=== PATIENT | male | born 1950 | race Caucasian/White ===

== ENCOUNTER 2017-07-30 09:17 | Inpatient (IN) | payer MEDICARE ==
[~2017-07-30] VITALS: Ht 188 cm; Wt 112.6 kg
[2017-07-30] MEDS ORDERED: PLEASE ENTER ALLERGIES MC SCH (10:00)
[2017-07-30] MEDS ORDERED: SODIUM CHLORIDE FLUSH 10ML SYR IVF ONE (10:00)
[2017-07-30 10:19] LABS: BASOPHILS # (AUTO) 0.04 x10^3/uL (0-0.1); BASOPHILS % (AUTO) 0 % (0-1); EOSINOPHILS # (AUTO) 0.19 x10^3/uL (0-0.4); EOSINOPHILS % (AUTO) 2 % (1-7); LYMPHOCYTES # (AUTO) 1.12 x10^3/uL (1-3.4); LYMPHOCYTES % (AUTO) 11 % (22-44); MD NO; MEAN CORPUSCULAR HGB CONC 33.1 g/dL (33.2-36.2); MEAN CORPUSCULAR VOLUME 90.7 fL (81-97); MEAN PLATELET VOLUME 9.4 fL (7.4-10.4); MONOCYTES # (AUTO) 0.64 x10^3/uL (0.2-0.8); MONOCYTES % (AUTO) 6 % (2-9); NEUTROPHILS # (AUTO) 8.34 x10^3/uL (1.8-6.8); NEUTROPHILS % (AUTO) 81 % (42-75); PLATELET COUNT 187 x10^3/uL (130-400); RED BLOOD COUNT 4.16 x10^6/uL (4.38-5.82); RED CELL DISTRIBUTION WIDTH 16.5 % (9.4-14.8)
[2017-07-30 10:25] LABS: CHLORIDE 103 mmol/L (98-107); INTERNATIONAL NORMALIZED RATIO 1.02 (0.93-1.1); PROTHROMBIN TIME 10.5 Seconds (9.6-11.5)
[2017-07-30 10:37] LABS: ALANINE AMINOTRANSFERASE 48 U/L (12-78); ALBUMIN 2.7 g/dL (3.4-5.0); ANION GAP 7 mmol/L (5-15); CALCIUM 9.4 mg/dL (8.5-10.1); CREATININE 1.74 mg/dL (0.7-1.3)
[2017-07-30 10:42] LABS: ALKALINE PHOSPHATASE 55 U/L (45-117); BILIRUBIN,TOTAL 1.4 mg/dL (0.2-1.0); TOTAL PROTEIN 6.6 g/dL (6.4-8.2); TROPONIN I < 0.015 ng/mL (0.000-0.045)
[2017-07-30] MEDS ORDERED: SODIUM CHLORIDE 0.9% 1,000 ML IV ONE (11:15)
[2017-07-30 11:55] LABS: T4 (THYROXINE) 8.8 mcg/dL (4.5-12.1)
[2017-07-30] MEDS ORDERED: GLIP10TA13 PO ×2 (12:19)
[2017-07-30] MEDS ORDERED: LIOT25TA3 PO (12:19)
[2017-07-30] MEDS ORDERED: ATOR20TA PO (12:19)
[2017-07-30] MEDS ORDERED: ASPI325T17 PO (12:19)
[2017-07-30] MEDS ORDERED: MECL-76 PO (12:19)
[2017-07-30] MEDS ORDERED: VALS80TA3 PO (12:19)
[2017-07-30] MEDS ORDERED: FURO20TA3 PO (12:19)
[2017-07-30] MEDS ORDERED: FLUT100B NAS (12:19)
[2017-07-30] MEDS ORDERED: SODIUM CHLORIDE 0.9% 1,000 ML IV SCH (12:19)
[2017-07-30] MEDS ORDERED: LEVO200T5 PO (12:19)
[2017-07-30] MEDS ORDERED: SITA100T PO (12:19)
[2017-07-30] MEDS ORDERED: ACETAMINOPHEN 325 MG TABLET PO PRN (12:30)
[2017-07-30] MEDS ORDERED: PHARMACY MAY ADJ FOR RENAL FX MC PRN (12:30)
[2017-07-30] MEDS ORDERED: hydrALAzine 20 MG/ML, 1ML IVPush PRN (12:30)
[2017-07-30] MEDS ORDERED: ONDANSETRON 2MG/ML, 2ML IVPush PRN (12:30)
[2017-07-30] MEDS: MECLIZINE CHEWABLE 25 MG TAB PO SCH ×3 (13:20→21:15)
[2017-07-30] MEDS: HEPARIN 5,000 UNITS/ML, 1ML SQ SCH ×2 (13:20→21:15)
[2017-07-30 13:22] VITALS: BP 170/68
[2017-07-30 13:25] LABS: HEMOGLOBIN A1C 9.7 % (4.2-6.3); TROPONIN I < 0.015 ng/mL (0.000-0.045)
[2017-07-30 14:53] LABS: MICROSCOPIC AUTO
[2017-07-30 14:54] LABS: CULTURE INDICATED? NO
[2017-07-30] MEDS ORDERED: DEXTROSE 50%, 50ML SYRINGE IVPush PRN (18:00)
[2017-07-30] MEDS: INSULIN LISPRO 100 UNITS/ML, PEN SQ-INSULIN SCH ×2 (18:00→21:14)
[2017-07-30] MEDS ORDERED: GLUCAGON 1 MG IM PRN (18:00)
[2017-07-30] MEDS ORDERED: DEXTROSE 4 GM TAB.CHEW PO PRN (18:00)
[2017-07-30 18:10] LABS: TROPONIN I < 0.015 ng/mL (0.000-0.045)
[2017-07-30 21:11] VITALS: BP 153/81
[2017-07-30] MEDS: ATORVASTATIN 20 MG TABLET PO SCH (21:15)
[2017-07-30] MEDS: SODIUM CHLORIDE FLUSH 10ML SYR IVF SCH (21:16)
[2017-07-31] VITALS (19 sets, daily range): BP systolic 81–159; BP diastolic 40–87
[2017-07-31] MEDS: HEPARIN 5,000 UNITS/ML, 1ML SQ SCH ×3 (05:46→20:42)
[2017-07-31 06:07] LABS: CALCIUM 9.3 mg/dL (8.5-10.1); CHLORIDE 105 mmol/L (98-107)
[2017-07-31 06:09] LABS: BASOPHILS # (AUTO) 0.06 x10^3/uL (0-0.1); BASOPHILS % (AUTO) 1 % (0-1); EOSINOPHILS # (AUTO) 0.23 x10^3/uL (0-0.4); EOSINOPHILS % (AUTO) 2 % (1-7); LYMPHOCYTES # (AUTO) 1.34 x10^3/uL (1-3.4); LYMPHOCYTES % (AUTO) 14 % (22-44); MD NO; MEAN CORPUSCULAR HEMOGLOBIN 30.3 pg (27.5-34.5); MEAN CORPUSCULAR HGB CONC 33.2 g/dL (33.2-36.2); MEAN CORPUSCULAR VOLUME 91.2 fL (81-97); MEAN PLATELET VOLUME 9.8 fL (7.4-10.4); MONOCYTES # (AUTO) 0.76 x10^3/uL (0.2-0.8); MONOCYTES % (AUTO) 8 % (2-9); NEUTROPHILS # (AUTO) 7.29 x10^3/uL (1.8-6.8); NEUTROPHILS % (AUTO) 75 % (42-75); PLATELET COUNT 166 x10^3/uL (130-400); RED BLOOD COUNT 3.72 x10^6/uL (4.38-5.82); RED CELL DISTRIBUTION WIDTH 16.3 % (9.4-14.8)
[2017-07-31 06:12] LABS: ANION GAP 7 mmol/L (5-15); CHOL/HDL RATIO 3.8; CHOLESTEROL, TOTAL 134 mg/dL (140-239); CREATININE 1.87 mg/dL (0.7-1.3); HDL CHOL % 26 % (26-37); HDL CHOLESTEROL (DIRECT) 35 mg/dL (40-60); LDL CHOLESTEROL,CALCULATED 60 mg/dL (54-169); LDL/HDL RATIO 1.7 (0.5-3.0); TRIGLYCERIDES 196 mg/dL (50-200); VLDL CHOLESTEROL 39 mg/dL (0-25)
[2017-07-31] MEDS: MECLIZINE CHEWABLE 25 MG TAB PO SCH ×3 (08:19→20:43)
[2017-07-31] MEDS: LEVOTHYROXINE 200 MCG TABLET PO SCH (08:19)
[2017-07-31] MEDS: ASPIRIN 325 MG TABLET PO SCH (08:19)
[2017-07-31] MEDS: INSULIN LISPRO 100 UNITS/ML, PEN SQ-INSULIN SCH ×4 (08:19→20:42)
[2017-07-31] MEDS: SODIUM CHLORIDE FLUSH 10ML SYR IVF SCH ×2 (08:20→20:43)
[2017-07-31] MEDS: VALSARTAN 80 MG TABLET PO SCH (08:20)
[2017-07-31] MEDS ORDERED: FLUTICASONE FUROATE 100MCG/INH INH SCH (09:00)
[2017-07-31] MEDS ORDERED: FLUT16SP NAS (09:32)
[2017-07-31] MEDS: FLUTICASONE NASAL SPRAY 16GM NAS SCH (11:10)
[2017-07-31] MEDS ORDERED: SODIUM CHLORIDE 0.9%, 500ML IVBOLUS ONE (15:00)
[2017-07-31] MEDS: ATORVASTATIN 20 MG TABLET PO SCH (20:43)
[2017-08-01] VITALS (8 sets, daily range): BP systolic 108–156; BP diastolic 60–78
[2017-08-01] MEDS: HEPARIN 5,000 UNITS/ML, 1ML SQ SCH ×2 (04:43→12:32)
[2017-08-01 06:22] LABS: BASOPHILS # (AUTO) 0.07 x10^3/uL (0-0.1); BASOPHILS % (AUTO) 1 % (0-1); EOSINOPHILS # (AUTO) 0.21 x10^3/uL (0-0.4); EOSINOPHILS % (AUTO) 2 % (1-7); LYMPHOCYTES # (AUTO) 1.06 x10^3/uL (1-3.4); LYMPHOCYTES % (AUTO) 11 % (22-44); MD NO; MEAN CORPUSCULAR HEMOGLOBIN 30.4 pg (27.5-34.5); MEAN CORPUSCULAR HGB CONC 32.8 g/dL (33.2-36.2); MEAN CORPUSCULAR VOLUME 92.5 fL (81-97); MEAN PLATELET VOLUME 9.9 fL (7.4-10.4); MONOCYTES % (AUTO) 9 % (2-9); NEUTROPHILS # (AUTO) 7.32 x10^3/uL (1.8-6.8); NEUTROPHILS % (AUTO) 77 % (42-75); PLATELET COUNT 186 x10^3/uL (130-400); RED BLOOD COUNT 3.91 x10^6/uL (4.38-5.82); RED CELL DISTRIBUTION WIDTH 16.5 % (9.4-14.8)
[2017-08-01 06:31] LABS: ANION GAP 5 mmol/L (5-15); CALCIUM 8.7 mg/dL (8.5-10.1); CHLORIDE 107 mmol/L (98-107); CREATININE 1.46 mg/dL (0.7-1.3)
[2017-08-01] MEDS: INSULIN LISPRO 100 UNITS/ML, PEN SQ-INSULIN SCH ×3 (07:00→16:00)
[2017-08-01] MEDS: VALSARTAN 80 MG TABLET PO SCH (09:00)
[2017-08-01] MEDS: MECLIZINE CHEWABLE 25 MG TAB PO SCH ×2 (09:00→16:00)
[2017-08-01] MEDS: LEVOTHYROXINE 200 MCG TABLET PO SCH (09:04)
[2017-08-01] MEDS: ASPIRIN 325 MG TABLET PO SCH (09:04)
[2017-08-01] MEDS: SODIUM CHLORIDE FLUSH 10ML SYR IVF SCH (09:06)
[2017-08-01] MEDS: FLUTICASONE NASAL SPRAY 16GM NAS SCH (09:08)
[2017-08-01] MEDS ORDERED: IBUPROFEN 200 MG TABLET PO ONE (13:30)
[2017-08-01] MEDS ORDERED: MECL-85 PO (16:11)
== END 2017-08-01 17:30 | disposition home health service (06) | DRG 682 ==
LOC: EDBD → MERGE 09:17 → EDBD 09:17 → ED 11:30 → EDIP 11:31 → ED 11:56 → 4WST 12:35
PROVIDERS: ADMIT Internal Medicine; ATTEND Internal Medicine
DX: N17.9 Acute kidney failure, unspecified (principal); E43 Unspecified severe protein-calorie malnutrition; J96.10 Chronic respiratory failure, unspecified whether with hypoxia or hypercapnia; I13.0 Hypertensive heart and chronic kidney disease with heart failure and stage 1 through stage 4 chronic kidney disease, or unspecified chronic kidney disease; R17 Unspecified jaundice; I50.20 Unspecified systolic (congestive) heart failure; G90.8 Other disorders of autonomic nervous system; F45.8 Other somatoform disorders; I50.9 Heart failure, unspecified; D64.9 Anemia, unspecified; D72.829 Elevated white blood cell count, unspecified; E03.9 Hypothyroidism, unspecified; E11.43 Type 2 diabetes mellitus with diabetic autonomic (poly)neuropathy; E78.5 Hyperlipidemia, unspecified; I25.10 Atherosclerotic heart disease of native coronary artery without angina pectoris; I35.8 Other nonrheumatic aortic valve disorders; I95.1 Orthostatic hypotension; J44.9 Chronic obstructive pulmonary disease, unspecified; N18.9 Chronic kidney disease, unspecified; Z91.19 Patient's noncompliance with other medical treatment and regimen; Z95.1 Presence of aortocoronary bypass graft; Z99.81 Dependence on supplemental oxygen; Z68.31 Body mass index [BMI] 31.0-31.9, adult
CPT/HCPCS: 36415; 71045; 80048; 80053; 80061; 81001; 82962; 83036; 83735; 83880; 84100; 84436; 84443; 84481; 84484; 85025; 85610; 93005; 93306; 99285; J1644; J1815; J7030; J7040